=== PATIENT | male | born 1940 ===

== ENCOUNTER → 2023-10-05 | Outpatient (CLI) | payer MEDICARE, BC | END | disposition home or self-care (01) | LOC: RADXRMAIN 16:19 | PROVIDERS: ATTEND Orthopaedic Surgery | DX: Z53.9 Procedure and treatment not carried out, unspecified reason (principal) ==

== ENCOUNTER → 2023-10-05 | Outpatient (CLI) | payer MEDICARE, BC ==
--- NOTE | 2023-10-31 08:14 | CT ---
Patient: Tomasz Tariq Ordering Physician: Unknown, Unknown ID: [id number] Phone, Pager: Phone: N/A Pager: N/A : [phone] Age/Gender: 83Y, M Primary Location: N/A Procedure: Pelvis^MAKO_KNEE ( Adult) Study Date: 10/05/2023 4:32:35 PM EXAMINATION TYPE: CT knee RT wo con CT DLP: 574 mGycm, Automated exposure control for dose reduction was used. DATE OF EXAM: 10/12/2023 9:34 AM COMPARISON: None CLINICAL INDICATION: Presurgical, pain TECHNIQUE: Axial images were obtained of the CT knee RT wo con, Additional coronal and sagittal refor matted images and soft tissue and bone window were obtained for review. Contrast used: mL of , (None if empty) Oral contrast used: (None if empty) FINDINGS: The visualized portion of the hips demonstrate mild osteoarthrosis changes with osteophyte formation of the acetabulum. No acute intrapelvic process. The bony structures of the pelvis are inta ct. The visualized knee demonstrates osteophyte formation of the tibial plateau, the patella and femoral condyles. There is joint space narrowing and subchondral sclerosis most pronounced in the medial kne e. Calcified joint body measuring up to 13 mm imaging of femoral condyles anteriorly.. No evidence of fracture. A fabella is present. Small joint effusion is present. Navarro's cyst is noted posteriorly t o the knee with calcification laying in the inferior portion. Visualized ankle demonstrates multifocal osteoarthrosis changes with osteophyte formation and mild zoie int space narrowing. No evidence of fractures. Scattered colonic diverticula. Multiple bladder diverticula. Prostatomegaly. Atherosclerosis of the a rterial vasculature. IMPRESSION: Severe osteoarthrosis changes of the right knee.
== END | disposition home or self-care (01) ==
LOC: RADCTMAIN 15:30
PROVIDERS: ATTEND Orthopaedic Surgery

== ENCOUNTER 2023-10-19 10:44 | Day surgery (SDC) | payer MEDICARE, BC ==
[~2023-10-19 10:44] MED LIST: HYDROmorphone 0.5 MG/0.5 ML SYRINGE IVP PRN; LIDOCAINE 1% (10MG/ML) FOR IV START INTRADERMA PRN; TRANEXAMIC 1,000 MG/100ML-NACL 1,000 MG in SALINE 1 100ML.BAG IVPB PRN
[2023-10-19] MEDS: IV FLUID CONTINUATION 1,000 ML IV ONE (11:45)
[2023-10-19] MEDS: DOCUSATE 100 MG CAP PO PRN (11:50)
[2023-10-19] MEDS: ACETAMINOPHEN TAB 500 MG TAB PO PRN (11:50)
[2023-10-19] MEDS: oxyCODONE ER 10 MG TAB.ER.12H PO PRN (11:50)
[2023-10-19] MEDS: LACTATED RINGERS 1,000 ML IV SCH ×2 (12:10→18:03)
[2023-10-19] MEDS: DEXAMETHASONE SOD PHOSPHATE 10 MG/ML 1 ML VIAL IV PRN (12:11)
[2023-10-19] MEDS: FAMOTIDINE 20 MG/2 ML VIAL IVP PRN (12:11)
--- NOTE | 2023-10-19 12:11 | P.ANPRN ---
Procedure Note - Anesthesia - Nerve Block Performed Right [place] Single Date of Procedure: 10/19/23 Procedure Start Time: 11:53 Procedure Stop Time: 11:58 Location of Patient: PreOp Indication: Acute Post-Operative Pain, Analgesia, Requested by Surgeon Sedation Type: Sedate with meaningful contact maintained Preparation: Sterile Prep Position: Left Lateral Catheter: None Needle Types: Pajunk Needle Gauge: 21 Ultrasound used to visualize needle placement: Yes Ultrasound used to observe medication spread: Yes Injectate: 0.5% Ropivacaine (see comment for volume) (Ropiv 20ml+Secadron 4mg) Blood Aspirated: No Pain Paresthesia on Injection Noted: No Resistance on Injection: Normal Image Stored and Saved: Yes Events: Uneventful and Well Tolerated
[2023-10-19] MEDS: KETOROLAC 15 MG/ML 1 ML VIAL IVP PRN (12:12)
[2023-10-19] MEDS: ONDANSETRON 4 MG/2 ML VIAL IVP PRN (12:12)
--- NOTE | 2023-10-19 12:13 | P.ANPRN ---
Procedure Note - Anesthesia - Nerve Block Performed Right Adductor Canal Single Time Out Performed: Yes Date of Procedure: 10/19/23 Procedure Start Time: 11:58 Procedure Stop Time: 12:03 Location of Patient: PreOp Indication: Acute Post-Operative Pain, Analgesia, Requested by Surgeon Sedation Type: Sedate with meaningful contact maintained Preparation: Sterile Prep Position: Supine Catheter: None Needle Types: Pajunk Needle Gauge: 21 Ultrasound used to visualize needle placement: Yes Ultrasound used to observe medication spread: Yes Injectate: 0.5% Ropivacaine (see comment for volume) (ropiv 20ml+Decadron 4mg) Blood Aspirated: No Pain Paresthesia on Injection Noted: No Resistance on Injection: Normal Image Stored and Saved: Yes Events: Uneventful and Well Tolerated
[2023-10-19] MEDS: MIDAZOLAM 2 MG/2 ML VIAL IV ONE (12:15)
[2023-10-19] MEDS ORDERED: ROPIVACAINE 5 MG/ML 30 ML VIAL ONE (12:43)
[2023-10-19] MEDS ORDERED: GLYCOPYRROLATE 0.2 MG/ML 2 ML VIAL ONE (12:43)
[2023-10-19] MEDS ORDERED: SUCCINYLCHOLINE CHLORIDE 200 MG/10 ML VIAL IV ONE (12:43)
[2023-10-19] MEDS ORDERED: DEXAMETHASONE SOD PHOSPHATE 4 MG/ML 1 ML VIAL ONE (12:43)
[2023-10-19] MEDS ORDERED: fentaNYL (PF) 50 MCG/ML 2 ML AMP ONE (12:43)
[2023-10-19] MEDS ORDERED: PROPOFOL 10 MG/ML 20 ML VIAL IV ONE (12:43)
[2023-10-19] MEDS ORDERED: NEOSTIGMINE 1 MG/ML 10 ML VIAL ONE (12:43)
[2023-10-19] MEDS ORDERED: LIDOCAINE 1% INJ 10MG/ML (20 ML MDV) ONE (12:43)
[2023-10-19] MEDS ORDERED: TRANEXAMIC 1,000 MG/100ML-NACL PREMIX BAG ONE (12:43)
[2023-10-19] MEDS ORDERED: ROCURONIUM 10 MG/ML (5 ML VIAL) IV ONE (12:43)
[2023-10-19] MEDS ORDERED: PHENYLEPHRINE-0.9% NACL SYG 1,000 MCG/10 ML SYRINGE ONE (12:43)
[2023-10-19] MEDS: ROPIVACAINE/EPI/CLONIDINE/KET 50 ML SYRINGE MISCELLANE PRN (13:24)
[2023-10-19] MEDS ORDERED: HYDROmorphone 0.5 MG/0.5 ML SYRINGE IVP PRN (14:55)
[2023-10-19] MEDS ORDERED: ONDANSETRON 4 MG/2 ML VIAL IVP PRN (14:55)
[2023-10-19] MEDS ORDERED: bisacodyL 10 MG SUPP RECTAL PRN (14:55)
[2023-10-19] MEDS ORDERED: hydrOXYzine pamoate 25 MG CAP PO PRN (14:55)
[2023-10-19] MEDS ORDERED: HYDROcodone/APAP 10-325MG 1 EACH TAB PO PRN (14:55)
[2023-10-19] MEDS ORDERED: MAGNESIUM HYDROXIDE 2,400 MG/30 ML CUP PO PRN (14:55)
[2023-10-19] MEDS ORDERED: NALOXONE 0.4 MG/ML 1 ML VIAL IV PRN (14:55)
--- NOTE | 2023-10-19 14:55 | P.OP ---
Date of Procedure: 10/19/23 Preoperative Diagnosis: severe right knee osteoarthritis Postoperative Diagnosis: same Procedure(s) Performed: 1. Right total knee arthroplasty 2. Computer assisted musculoskeletal navigation using CT/MRI images Implants: 1. [place] Tri[employer]lon CR Femur Size #5 2. [place] Tri[employer]lon [place] Tibial Base Size #6 3. [place] Tri[employer] CS poly Size #6, 10-mm 4. [place] Tri[employer]lon all poly patella, Size #35 Anesthesia: OCA Surgeon: Tomasz Lyons Rig Hand #1: Michael Silva Estimated Blood Loss (ml): 100 IV fluids (ml): 800 Pathology: none sent Condition: stable Disposition: PACU Indications for Procedure: I met with the patient preoperatively in the office setting and discussed treatment of their symptomatic knee arthritis. They failed a long course of nonsurgical treatment and elected to proceed with an elective total knee replacement. I discussed the potential risks and complications at length and gave them ample time to ask questions. Risks discussed included: risks from anesthesia, superficial site surgical infection, acute and/or chronic periprosthetic joint infection, delayed wound healing, drainage, wound necrosis, instability, stiffness, stiffness requiring manipulation and/or revision surgery, damage to local blood vessels or nerves, aseptic loosening of the implants, extensor mechanism issues including disruption, patellar maltracking, avascular necrosis etc., continued or worsened knee pain, generalized dissatisfaction with surgical outcome, need for revision surgery, an inability to regain preinjury level of function, DVT, PE, other medical complications, and possibly loss of life or limb. The patient voiced their understanding that while these are the most common complications other less common complications are possible. They provided both their verbal and written consent to go forward with surgery. Description of Procedure: The patient was identified in preoperative holding and the correct operative extremity was verified and marked with a marker. I reviewed the consent form with the patient at length. All of their questions were answered. The patient was given a block by anesthesia. They were then brought back to the operating room. They were transferred onto the operating room table where a general anesthetic, preoperative antibiotics, and tranexamic acid were administered by anesthesia. A tourniquet was applied to the proximal aspect of the operative extremity. The contralateral extremity was padded under the heel and secured to the operating room table with a nonsterile blue towel and tape. The ipsilateral arm was carefully draped across the patient's chest and secured with a pillow and foam. A post was applied over the lateral aspect of the ipsilateral thigh and a bolster was placed under the ipsilateral foot. I verified that the operative extremity was stable and the knee was flexed to 90. The operative extremity was then placed in a leg barajas, nonsterile drapes were applied, and the extremity was prepped and draped sterilely in the standard sterile fashion. Prior to starting surgery timeout was performed identifying the correct patient, operative extremity, and procedure. The leg was then elevated, exsanguinated with an Esmarch bandage, and the tourniquet was inflated. An anterior midline incision was made sharply with a scalpel. Once I had dissected deep to the superficial fascial layer medial and lateral flaps were elevated. A medial parapatellar arthrotomy was created. Upon opening the knee joint there were diffuse arthritic changes in all 3 compartments. The anterior horn of the medial meniscus were sharply released and a medial release was performed around the posterior medial corner of the knee to facilitate retractor placement. The fat pad was excised with electrocautery. The patella was found to be severely arthritic and a provisional cut was made with a sagittal saw to facilitate mobilization of the extensor mechanism during the procedure. Remn ants of the ACL and PCL were then excised from the notch. 4 mm pins were then placed within the incision in the medial distal femur and proximal tibia. Arrays were applied to the pins and I verified they were completely tightened. The knee was then registered with the Jumo robot and manipulations in implant position were made to balance the knee and opitmize implant position. Using the Nicanor robotic saw all cuts were made in accordance with our plan. After all bony fragments had been removed the cuts were verified with the planar probe. The tibia was then subluxed forward and sized. The knee was brought into flexion and a lamina family preservation worker was placed to allow removal of the meniscal remnants both medially and laterally as well as posterior osteophytes. Local anesthetic was then infiltrated around the joint capsule. Trial implants were then placed within the knee. Range of motion and collateral ligament tension was then evaluated. Adjustments in implant size and position were then made accordingly. Once the knee was felt to be appropriately balanced the Nicanor pins were removed. The patella was then recut, sized, and punched. A trial patellar button was then placed. With the trial components in place, the patella tracked midline. The femur was then drilled and the trial component removed. The trial tibial component was then appropriately rotated, pinned, and prepared for the keel. All trial components were then removed from the knee. The knee was thoroughly irrigated with pulsatile lavage. Cement was prepared via vacuum mixing in a bowl on the back table. I then hand pressurized cement into the femur and tibia and placed the implants beginning with the tibial base tray and poly liner, femoral component, and finally the patellar button. All extruded cement was removed including from the pin sites. Once the cement had hardened the knee was evaluated one final time with the final polyethylene liner in place. The knee had full extension and flexion and felt stable to varus and valgus stress throughout the arc of motion. The tourniquet was released and with the tourniquet down the patella tracked midline. All bleeders were controlled with electrocautery. The knee was then soaked for 3 minutes with a dilute Betadine soak. The knee was thoroughly irrigated using 3 L of sterile saline and pulsatile lavage. The extensor mechanism was then reapproximated using pop off Vicryl sutures followed by a running barbed suture. The knee was then closed in layers with a 0 strata fix for the deep fascial layer, 2-0 strata fix for the superficial subcutaneous layer and Monocryl and Steri-Strips for the skin. A sterile dressing was applied. I verified that all instrument, sponge, and sharp counts were correct. The patient was then transferred off the operating room table, extubated, and brought to recovery having tolerated the procedure well. Michael Silva PA-C was required as a skilled assistant to the ceo for patient positioning, draping, exposure, retraction, closure of wound and application of dressing PLAN: The patient can weight-bear as tolerated on the operative extremity. DVT prophylaxis with aspirin 81 mg twice a day based on preoperative risk stratification. Internal medicine for perioperative medical management. 2 doses of post-operative antibiotics. Physical therapy for gait training. Follow-up in the office in 2 weeks for wound check and x-rays of the knee including an AP and lateral.
--- NOTE | 2023-10-19 18:07 | XR ---
EXAMINATION TYPE: XR knee limited RT DATE OF EXAM: 10/19/2023 COMPARISON: None HISTORY: Postop right knee TECHNIQUE: Right knee is examined in 2 projections FINDINGS: Tibial femoral components have been placed. No acute fractures are evident. Postsurgical so ft tissue changes are evident. IMPRESSION: 1. No acute fractures post right knee replacement.
[2023-10-19] MEDS: ATORVASTATIN 40 MG TAB PO SCH (20:33)
[2023-10-19] MEDS: ASPIRIN 81 MG PO SCH (20:33)
[2023-10-19] MEDS: SENNOSIDES-DOCUSATE SODIUM 1 EACH TAB PO SCH (20:33)
[2023-10-19] MEDS: RANOLAZINE 500 MG TAB.ER.12H PO SCH (21:26)
[2023-10-20] MEDS ORDERED: HYDROcodone/APAP 5-325MG 1 EACH TAB ONE (02:58)
[2023-10-20 07:36] VITALS: BP 101/56; PULSE 80; RESP 18; TEMP 97.7
--- NOTE | 2023-10-20 08:06 | P.PN ---
Subjective Progress Note Date: 10/20/23 Principal diagnosis: Right knee osteoarthritis. Patient tolerated the right TKA on 10/19/2023 well. Patient has been up and walking multiple times and has very little pain in their right knee. Patient has had some urinary retention. Objective - Vital Signs Vital signs: Vital Signs Temp 97.7 F 10/20/23 07:35 Pulse 80 10/20/23 07:35 Resp 18 10/20/23 07:35 BP 101/56 10/20/23 07:35 Pulse Ox 92 L 10/20/23 07:35 FiO2 Intake & Output 10/19/23 10/20/23 10/20/23 18:59 06:59 18:59 Intake Total 550 Output Total 100 400 Balance 450 -400 Weight 83.4 kg Intake: IV 550 Output: Urine 400 Straight 400 Estimated Blood Loss 100 - Exam Patient is resting comfortably in bed. No apparent distress. They are awake, alert and able to answer questions. On inspection the surgical knee dressing is intact, there is no drainage or strikethrough. The skin surrounding the dressing is free of erythema. There is mild swelling in the operative knee. Operative femoral nerve function is intact. The patient is able to actively plantarflex and dorsiflex their operative ankle and toes. Their operative foot is pink and warm to touch. Assessment and Plan Assessment: Postop day #1 status post right total knee arthroplasty for right knee osteoarthritis Plan: Weight-bear as tolerated on the operative extremity. Use a walker to ambulate. Leave surgical dressing in place. Physical therapy for gait training and mobilization. Internal medicine for perioperative medical management, and management of post op urinary retention. Disposition: The patient would like to discharge home later today or tomorrow with their family when urinary retention and medically cleared.
[2023-10-20] MEDS: HYDROcodone/APAP 5-325MG 1 EACH TAB PO PRN (08:09)
[2023-10-20] MEDS: TAMSULOSIN 0.4 MG CAP.ER.24H PO SCH (10:40)
[2023-10-20 10:59] LABS: Basophils # (A) 0.03 X 10*3/uL (0.00-0.10); Basophils % (A) 0.1 %; Eosinophils # (A) 0 X 10*3/uL (0.04-0.35); Eosinophils % (A) 0 %; HCT 37.9 % (37.2-50.0); HGB 12.5 g/dL (12.0-17.0); Lymphocytes # (A) 1.97 X 10*3/uL (0.90-5.00); Lymphocytes % (A) 9.3 %; MCH 31.3 pg (27.0-32.0); Mean Platelet Volume 10.2 FL (9.5-12.2); Monocytes # (A) 1.13 X 10*3/uL (0.20-1.00); Monocytes % (A) 5.3 %; NRBC Per 100 WBC 0 X 10*3/uL (0.00-0.01); Neutrophils # (A) 17.99 X 10*3/uL (1.80-7.70); Neutrophils % (A) 84.8 %; Platelet Count 199 X 10*3/uL (140-440); RBC 3.99 X 10*6/uL (4.10-5.60); RDW 12.4 % (11.5-14.5); WBC 21.23 X 10*3/uL (4.50-10.00)
--- NOTE | 2023-10-20 11:31 | P.CONS ---
History of Present Illness - Reason for Consult Consult date: 10/20/23 Medical management - History of Present Illness History of present illness; patient is a 83-year-old gentleman with past medical history significant for hypothyroidism, hyperlipidemia, hypertension, coronary artery disease who presented to the hospital for elective right knee arthroplasty. Patient has been dealing with this right knee pain for the last few years, patient has been following up outpatient with orthopedic and has been diagnosed with severe osteoarthritis. Patient continues to experience severe knee pain and has tried all conservative measures but has failed. Orthopedics recommended a right total knee arthroplasty for which patient presented to hospital on 10/18. Postoperatively internal medicine team were consulted for medical management REVIEW OF SYSTEMS: CONSTITUTIONAL: No fever, no malaise, no fatigue. HEENT: No recent visual problems or hearing problems. Denied any sore throat. CARDIOVASCULAR: No chest pain, orthopnea, PND, no palpitations, no syncope. PULMONARY: No shortness of breath, no cough, no hemoptysis. GASTROINTESTINAL: No diarrhea, no nausea, no vomiting, no abdominal pain. NEUROLOGICAL: No headaches, no weakness, no numbness. HEMATOLOGICAL: Denies any bleeding or petechiae. GENITOURINARY: Denies any burning micturition, frequency, or urgency. Complaining of urinary retention MUSCULOSKELETAL/RHEUMATOLOGICAL: Right knee pain ENDOCRINE: Denies any polyuria or polydipsia. The rest of the 14-point review of systems is negative. PHYSICAL EXAMINATION: GENERAL: The patient is alert and oriented x3, not in any acute distress. Well developed, well nourished. HEENT: Pupils are round and equally reacting to light. EOMI. No scleral icterus. No conjunctival pallor. Normocephalic, atraumatic. No pharyngeal erythema. No thyromegaly. CARDIOVASCULAR: S1 and S2 present. No murmurs, rubs, or gallops. PULMONARY: Chest is clear to auscultation, no wheezing or crackles. ABDOMEN: Soft, nontender, nondistended, normoactive bowel sounds. No palpable organomegaly. MUSCULOSKELETAL: Right knee surgical incision seen EXTREMITIES: No cyanosis, clubbing, or pedal edema. NEUROLOGICAL: Gross neurological examination did not reveal any focal deficits. SKIN: No rashes. Assessment and plan Right knee osteoarthritis status post right total knee arthroplasty Hypertension Hyperlipidemia Postoperative urinary retention History of coronary artery disease Monitor vital signs Monitor CBC Monitor CMP Continue pain management per orthopedics Continue DVT prophylaxis per orthopedics Ordered Flomax for urinary retention Resume home meds, holding blood pressure medication as he is normotensive PT and OT consulted Labs and medication were reviewed.. Continue same treatment. Continue with symptomatic treatment. Resume home medication. Monitor labs and vitals. DVT and GI prophylaxis. Further recommendations as per clinical course of the patient Dictation was produced using VisConPro dictation software. please excuse any grammatical, word or spelling errors. Past Medical History Past Medical History: Hearing Disorder / Deafness Additional Past Medical History / Comment(s): He was told that "he has an irregular heartbeat." Takes several cardiac medications. Last EF was 55%. Takes cholesterol and aspirin to, "keep things slippery." History of Any Multi-Drug Resistant Organisms: None Reported Past Surgical History: AICD, Hernia Repair Additional Past Surgical History / Comment(s): AICD x2. Past Anesthesia/Blood Transfusion Reactions: No Reported Reaction Type of Cardiac Device: AICD Device Placement Date:: unknown Past Psychological History: No Psychological Hx Reported Smoking Status: Former smoker Past Alcohol Use History: Rare Past Drug Use History: None Reported - Past Family History Father Additional Family Medical History / Comment(s): alcohol and drugs. Mother Additional Family Medical History / Comment(s): addicted to prescription drugs. Medications and Allergies Home Medications Medication Instructions Recorded Confirmed Type Aspirin 81 mg PO DAILY 10/18/23 10/19/23 History Atorvastatin [Lipitor] 40 mg PO HS 10/18/23 10/19/23 History Cholecalciferol (Vitamin D3) 12.5 mcg PO DAILY 10/18/23 10/18/23 History [Vitamin D3 (500 Iu/5 ML)] Multivitamin [Multivitamins Adult 1 each PO DAILY 10/18/23 10/18/23 History Gummies] Potassium Gluconate 99 mg PO DAILY 10/18/23 10/19/23 History Ranolazine [Ranexa] 500 mg PO BID 10/18/23 10/19/23 History carvediloL 25 mg PO BID 10/18/23 10/19/23 History ramipriL 10 mg PO DAILY 10/18/23 10/19/23 History Aspirin 81 mg PO BID #60 tab 10/20/23 Rx Docusate [Colace] 100 mg PO BID #60 capsule 10/20/23 Rx HYDROcodone/APAP 5-325MG [[place] 1 - 2 tab PO Q6HR PRN #56 tab 10/20/23 Rx 5-325] Omeprazole [PriLOSEC] 40 mg PO DAILY #30 cap 10/20/23 Rx Ondansetron [Zofran] 4 mg PO Q8HR PRN #30 tab 10/20/23 Rx Tamsulosin [Flomax] 0.4 mg PO PC-BRKFST 15 Days #15 cap 10/20/23 Rx Allergies Allergy/AdvReac Type Severity Reaction Status Date / Time No Known Allergies Allergy Verified 10/18/23 10:58 Physical Exam Vitals: Vital Signs Temp Pulse Pulse Resp BP Pulse Ox 10/20/23 07:35 97.7 F 80 18 101/56 92 L 10/20/23 02:00 97.5 F L 65 108/58 97 10/19/23 19:45 97.5 F L 65 99/62 97 10/19/23 16:42 78 104/67 95 10/19/23 15:42 88 12 94/59 95 10/19/23 15:27 85 12 93/63 91 L 10/19/23 15:12 96.9 F L 85 11 L 86/62 97 10/19/23 12:22 73 17 107/68 98 10/19/23 11:33 97.0 F L 86 18 123/82 97 Intake and Output 10/19/23 10/20/23 10/20/23 22:59 06:59 14:59 Intake Total 0 Output Total 100 400 687 Balance -100 -400 -687 Intake: IV 0 Output: Urine 400 Straight 400 Post Void Residual 687 Estimated Blood Loss 100 Other: Voiding Method Toilet Weight 83.4 kg Results CBC & Chem 7: 10/20/23 06:47
--- NOTE | 2023-10-20 12:44 | P.DS ---
Providers Date of admission: Tuesday10/19/2023 Attending physician: Tomasz Lyons Consults: 10/19/23 14:55 Consult Physician Routine Consulting Provider: Jennifer Almanza Consult Reason/Comments: post op medical management Do you want consulting provider notified?: Yes Primary care physician: [facility] Course: The patient is a pleasant 83 year old male who was admitted for an elective total knee yesterday. After surgery he was transferred to the ortho floor. He had 2 doses of post op ancef. He was started on ASA 81 mg bid for DVT prophylaxis. He worked with PT and did well. He was seen by IM and cleared for discharge home. He had some urinary retention which improved and was prescribed flomax by IM. Plan - Discharge Summary Discharge Rx Participant: No New Discharge Prescriptions: New HYDROcodone/APAP 5-325MG [[place] 5-325] 1 - 2 tab PO Q6HR PRN #56 tab PRN Reason: Pain Aspirin 81 mg PO BID #60 tab Docusate [Colace] 100 mg PO BID #60 capsule Omeprazole [PriLOSEC] 40 mg PO DAILY #30 cap Ondansetron [Zofran] 4 mg PO Q8HR PRN #30 tab PRN Reason: Nausea Tamsulosin [Flomax] 0.4 mg PO PC-BRKFST 15 Days #15 cap Continue carvediloL 25 mg PO BID Ranolazine [Ranexa] 500 mg PO BID Atorvastatin [Lipitor] 40 mg PO HS Multivitamin [Multivitamins Adult Gummies] 1 each PO DAILY Cholecalciferol (Vitamin D3) [Vitamin D3 (500 Iu/5 ML)] 12.5 mcg PO DAILY ramipriL 10 mg PO DAILY Aspirin 81 mg PO DAILY Potassium Gluconate 99 mg PO DAILY Discharge Medication List Aspirin 81 mg PO DAILY 10/18/23 [History] Atorvastatin [Lipitor] 40 mg PO HS 10/18/23 [History] Cholecalciferol (Vitamin D3) [Vitamin D3 (500 Iu/5 ML)] 12.5 mcg PO DAILY 10/18/23 [History] Multivitamin [Multivitamins Adult Gummies] 1 each PO DAILY 10/18/23 [History] Potassium Gluconate 99 mg PO DAILY 10/18/23 [History] Ranolazine [Ranexa] 500 mg PO BID 10/18/23 [History] carvediloL 25 mg PO BID 10/18/23 [History] ramipriL 10 mg PO DAILY 10/18/23 [History] Aspirin 81 mg PO BID #60 tab 10/20/23 [Rx] Docusate [Colace] 100 mg PO BID #60 capsule 10/20/23 [Rx] HYDROcodone/APAP 5-325MG [[place] 5-325] 1 - 2 tab PO Q6HR PRN #56 tab 10/20/23 [Rx] Omeprazole [PriLOSEC] 40 mg PO DAILY #30 cap 10/20/23 [Rx] Ondansetron [Zofran] 4 mg PO Q8HR PRN #30 tab 10/20/23 [Rx] Tamsulosin [Flomax] 0.4 mg PO PC-BRKFST 15 Days #15 cap 10/20/23 [Rx] Follow up Appointment(s)/Referral(s): Tomasz Lyons MD [Medical Doctor] - 11/03/23 10:30 am Patient Instructions/Handouts: Knee Replacement (DC) Activity/Diet/Wound Care/Special Instructions: 1. Weight-bear as tolerated on your operative extremity unless instructed otherwise. Use a walker or other assistive device to ambulate. 2. Leave surgical dressing in place. If your dressing becomes saturated with blood, there is drainage, or the dressing becomes loose please contact the office. 3. It is okay to shower with your surgical dressing, but do not submerge in water (no hot tubs, bath's, swimming etc.) 4. Make sure to take her blood clot prevention medication as prescribed (aspirin, Eliquis, Xarelto, and Plavix are commonly prescribed medications for blood clot prevention) 5. While taking [place] or Percocet for pain make sure you're taking a stool softener (Colace) and drink lots of water. 6. Keep all follow-up appointments as scheduled. You will usually be seen in 1-2 weeks following surgery. 7. Please contact the office with any questions or concerns [phone] Discharge Disposition: HOME WITH HOME HEALTH SERVICES
== END 2023-10-20 13:33 | disposition home health service (06) ==
LOC: OR 10:44 → 4SSUR 15:01 → OR 10-20 13:33
PROVIDERS: ATTEND Orthopaedic Surgery
DX: M17.11 Unilateral primary osteoarthritis, right knee (principal); E03.9 Hypothyroidism, unspecified; E78.5 Hyperlipidemia, unspecified; G89.18 Other acute postprocedural pain; I10 Essential (primary) hypertension; I25.10 Atherosclerotic heart disease of native coronary artery without angina pectoris; Z79.82 Long term (current) use of aspirin; Z79.899 Other long term (current) drug therapy; Z87.891 Personal history of nicotine dependence; Z95.810 Presence of automatic (implantable) cardiac defibrillator
CPT/HCPCS: 0055T; 27447; 64447; 64999; 85025